=== PATIENT | female | born 1965 | race Caucasian/White ===

== ENCOUNTER → 2020-02-02 09:48 | Outpatient (CLI) | payer BC, SELFPAY ==
--- NOTE | 2020-02-02 09:51 | MM_ITS ---
PROCEDURE: MM DIG SCREENING MAMM BI W/CAD Referring Doctor: Valentín Tapia Patient Age:54Y CLINICAL INDICATION: SCREENING 54-year-old. No hormones. No new complaints. Family history-unremarkable . History of cysts left breast COMPARISON: MG DMSB DIG MAMM-SCREEN MARICARMEN from 04/28/2013 MG DMDXUAVL DIG MAMM-DX UNI ADD VIEWS-LT from 05/17/2013 US BB US BREAST-MARICARMEN from 05/17/2013 MG DMSB DIG MAMM-SCREEN MARICARMEN from 04/08/2016 TECHNIQUE: Standard CC and MLO images were obtained. R2 CAD reviewed. Bilateral digital breast tomosynthesis included. Additional axillary CC views both breast included FINDINGS: When compared to 2013 mammogram studies there is further involution of the fibroglandular elements. Mild to moderate residual fibroglandular elements bilaterally. But no suspicious calcifications LEFT BREAST: We again see the area asymmetric density at the inferior left breast. A similar appearance since 2016 prior mammogram period was seen to be a site of multiple cysts on older 2013 mammogram studies/and ultrasound However today's tomosynthesis views do show slight irregular margin of this region centrally. Of this may reflect some scarring associated with some residual cysts. A because of this slight irregular contour I believe a follow-up ultrasound along with cc MLO spot views would be helpful to further evaluate and support relative stability. The patient's previous ultrasound was in back in 2013 Right breast No new areas of concern on right follow-up 1 year on the right would be adequate IMPRESSION: LEFT BREAST:. Again see asymmetric area density at the inferior breast. Appears similar to 2016-likely reflects residual clustered grouping small residual cysts seen which was much more pronounced 2013. However on today's tomosynthesis views there is some irregular margins at this region. Although likely due to some associated fibrous changes and scarring I would suggest spot views and ultrasound to further evaluate. Right breast but no new areas of concern follow-up right mammogram 1 year BI-RAD Category: 0 Need Additional Imaging Evaluation FOLLOW-UP: IMM Immediate Follow-up Recommended Recommend spot views and ultrasound left breast (A letter has been sent to the patient regarding results of the study.) Dictated by: Cristiano Alicia MD 02/09/2020 10:58 Cristiano Alicia MD in [place] 02/09/2020 10:58
== END ==
PROVIDERS: PCP Family Medicine; Visit Provider Family Medicine
DX: Z12.31 Encounter for screening mammogram for malignant neoplasm of breast (principal)
CPT/HCPCS: 77063; 77067

== ENCOUNTER → 2020-03-26 13:41 | Outpatient (CLI) | payer OTHER, SELFPAY ==
--- NOTE | 2020-03-26 13:46 | US_ITS ---
PROCEDURE: US BREAST LT COMPLETE CLINICAL INDICATION: ABN MAMM OF LT BREAST COMPARISON: US BB US BREAST-MARICARMEN from 05/17/2013 FINDINGS: There is a somewhat oval lesion with multiple hypoechoic cystic structures suggesting cluster of microcysts at the 5 o'clock position somewhat near the nipple. The cystic lesions actually appears smaller than on the previous ultrasound exam 05/17/2013. There is no abnormal acoustic shadowing. There are couple of additional benign-appearing cystic lesions at the 4 o'clock and 6 o'clock positions. There is no suspicious solid lesion. There are normal appearing nodes in the axilla. IMPRESSION: Basically benign-appearing cluster of microcysts at the location in question on the recent mammogram which actually appears somewhat smaller than on the previous ultrasound and feel no additional ultrasound evaluation is indicated at this time. Dictated by: Dr. Adam Oquendo MD 03/27/2020 08:02 Dr. Adam Oquendo MD in [place] 03/27/2020 08:02
--- NOTE | 2020-03-26 13:46 | MM_ITS ---
PROCEDURE: MM DIG MAMM DX UNILAT LT CAD Digital Breast Tomosynthesis Included CLINICAL INDICATION: ABN MAMM OF LT BREAST COMPARISON: MG DMDXUAVL DIG MAMM-DX UNI ADD VIEWS-LT from 05/17/2013 MG DMSB DIG MAMM-SCREEN MARICARMEN from 04/08/2016 MG MM DIG SCREENING MAMM BI W/CAD from 02/02/2020 US US BREAST LT COMPLETE from 03/26/2020 TECHNIQUE: Standard CC and MLO images and 3D Tomosynthesis was obtained. R2 CAD reviewed. FINDINGS: Spot compression views of the lobulated asymmetric density lower outer quadrant showed the lesion to have somewhat more well-defined borders with overall better visualization of the lesion due to progressive fatty involution of the surrounding breast parenchyma when compared to previous studies. The mammogram appearance suggest a cluster of small cysts. Ultrasound exam performed the same date confirm a cluster of small benign-appearing cysts. There is no definite evidence of architectural distortion. IMPRESSION: Probable cluster of cysts with no definite suspicious characteristics however oblique would be helpful to have a six-month follow-up left mammogram there by having 2 successive studies with tomosynthesis evaluation. Six-month follow-up ultrasound should be considered as well. BI-RAD Category: 3 Probably Benign Finding Short Term Follow-up FOLLOW-UP: 6M 6Month Follow-up (A letter has been sent to the patient regarding results of the study.) Dictated by: Dr. Adam Oquendo MD 03/27/2020 07:57 Dr. Adam Oquendo MD in [place] 03/27/2020 07:57
== END ==
PROVIDERS: PCP Family Medicine; Visit Provider Family Medicine
DX: R92.8 Other abnormal and inconclusive findings on diagnostic imaging of breast (principal)
CPT/HCPCS: 76641; 77061; 77065; G0279

== ENCOUNTER → 2020-09-26 12:54 | Outpatient (CLI) | payer OTHER, SELFPAY ==
--- NOTE | 2020-09-26 13:09 | MM_ITS ---
PROCEDURE: MM DIG MAMM DX UNILAT LT CAD Digital Breast Tomosynthesis Included CLINICAL INDICATION: ABN MAMM Follow-up abnormal mammogram/breast nodule COMPARISON: MG DMDXUAVL DIG MAMM-DX UNI ADD VIEWS-LT from 05/17/2013 MG DMSB DIG MAMM-SCREEN MARICARMEN from 04/08/2016 MG MM DIG SCREENING MAMM BI W/CAD from 02/02/2020 US US BREAST LT COMPLETE from 03/26/2020 MG MM DIG MAMM DX UNILAT LT CAD from 03/26/2020 US US BREAST LT COMPLETE from 09/26/2020 TECHNIQUE: Standard CC and MLO images and 3D Tomosynthesis was obtained. R2 CAD reviewed. Left breast ultrasound. Spot-compression views FINDINGS: Average fibroglandular tissue. There is a macro lobulated 3 x 1.2 cm nodular density in the lower aspect of the left breast. This appears more well-circumscribed and slightly larger than when compared to the previous exam. With small additional nodules anteriorly as well as other smaller benign-appearing nodules. These have a benign appearance. Left breast ultrasound: There are numerous small cysts noted at the 5 o'clock region of the left breast the largest of which measures 12 mm. The whole cluster of cyst measures approximately 3.9 cm. No suspicious nodules are evident. IMPRESSION: Benign findings. Recommend resume screening mammogram and repeat ultrasound in March 2021 BI-RAD Category: 2 Benign Finding(s) FOLLOW-UP: 6Month Follow-up (A letter has been sent to the patient regarding results of the study.) Dictated by: Leodan Ordonez MD 09/29/2020 17:38 Leodan Ordonez MD in [place] 09/29/2020 17:38
== END ==
PROVIDERS: PCP Family Medicine; Visit Provider Family Medicine
DX: R92.8 Other abnormal and inconclusive findings on diagnostic imaging of breast (principal)
CPT/HCPCS: 76641; 77061; 77065; G0279

== ENCOUNTER → 2021-04-01 13:46 | Outpatient (CLI) | payer OTHER, SELFPAY ==
--- NOTE | 2021-04-01 13:49 | US_ITS ---
PROCEDURE INFORMATION: Exam: US Left Breast, Complete MG Bilateral Screening 3D Mammography Exam date and time: 04/01/2021 1:49 PM Age: 55 years old Clinical indication: Screening. Follow-up for left breast cystic change TECHNIQUE: Imaging protocol: Complete ultrasound of all four quadrants of the Left breast and the retroareolar regions, including ultrasound of the axilla when performed. Bilateral screening tomosynthesis and 2D mammography including computer-aided detection (CAD) when performed. COMPARISON: 1. MG MM DIG SCREENING MAMM BI W/CAD 02/02/2020 10:05 AM 2. US BREAST LT COMPLETE 09/26/2020 1:47 PM FINDINGS: MAMMOGRAPHY: Breast composition: The breast tissue is composed of scattered areas of fibroglandular density. Mass: Stable lobulated 4.0 cm mass in the left lower outer quadrant corresponding to underlying cystic change sonographically Architectural distortion: None. Calcifications: None. Asymmetric density: None. Skin thickening: None. Axillary adenopathy: None. ULTRASOUND: Right solid masses: None. Right cystic masses: None. Right architectural distortion: None. Right acoustical shadowing: None. Right skin thickening: None. Right axillary adenopathy: None. Left solid masses: None. Left cystic masses: Cluster of cysts with a combined dimension of 3.7 cm is noted in the left 5 o'clock axis corresponding to the mass on mammography.. Left architectural distortion: None. Left acoustical shadowing: None. Left skin thickening: None. Left axillary adenopathy: None. IMPRESSION: No mammographic or sonographic evidence of malignancy. Annual screening is recommended unless otherwise clinically indicated. ASSESSMENT: Screening mammogram BIRADS: BI-RADS Category 2: Benign Overall BIRADS: BI-RADS Category 2: Benign
== END ==
PROVIDERS: PCP Family Medicine; Visit Provider Family Medicine
DX: Z12.31 Encounter for screening mammogram for malignant neoplasm of breast (principal); R92.8 Other abnormal and inconclusive findings on diagnostic imaging of breast
CPT/HCPCS: 76641; 77063; 77067

== ENCOUNTER → 2021-09-26 10:48 | Outpatient (CLI) | payer OTHER, SELFPAY ==
--- NOTE | 2021-09-26 10:56 | XR_ITS ---
FINAL REPORT CLINICAL HISTORY: LEFT SIDED NECK PAIN THAT SHOOTS DOWN LEFT ARM FINDINGS: CERVICAL SPINE 5 views were obtained. There is no acute fracture. There is straightening of the normal cervical lordosis which can be seen with patient positioning or muscle spasm. There are mild and moderate degenerative changes with osteophytes. There is mild right C4-5 and C5-6 neural foraminal narrowing with mild left C4-5, C5-6, and C6-7 neural foraminal narrowing. There is no soft tissue abnormality. IMPRESSION: Degenerative change with no acute bony abnormality. Straightening normal cervical lordosis which can be seen with patient positioning or muscle spasm. Reviewed, Interpreted and Dictated by Jimmy Miles III, MD Transcribed by Luly Ortiz Authenticated by Jimmy Miles III, MD on 09/26/2021 12:24:17 PM [facility]
== END ==
PROVIDERS: PCP Family Medicine; Visit Provider Family Medicine
DX: M53.82 Other specified dorsopathies, cervical region (principal)
CPT/HCPCS: 72050

== ENCOUNTER → 2021-11-21 15:18 | Outpatient (CLI) | payer OTHER, SELFPAY | PROVIDERS: PCP Physician Assistant; Visit Provider Physician Assistant | DX: U07.1 COVID-19 (principal) | CPT/HCPCS: C9803; U0003; U0005 ==

== ENCOUNTER 2024-11-25 10:50 | Outpatient (CLI) | payer OTHER, SELFPAY ==
--- OUTSIDE RECORDS SUMMARY | 2023-07-20 11:15 | XMS_ITS ---
[facility] Address [address] [place] [id number] Care Team Providers Care Weathercaster Name Role Phone Dimitri Tapia Primary Care Provider DIMITRI TAPIA Unavailable Unavailable Leena Bridges Unavailable [phone] Allergies Allergen (clinical drug ingredient) Drug/Non Drug Allergy documented on EMR Reaction Allergy Type Onset Date Status lisinopril Lisinopril Cough Drug Allergy Activ e naproxen Naproxen Unknown Drug Allergy 03/29/2019 Active Results Component Value Reference Range Notes Jean Marie Reviewed date:08/17/2023 09:52:30 AM Interpretation:Positive Performing Lab: Notes/Report: Positive REASON FOR VISIT Refills Medications Medication SIG (Take, Route, Frequency, Duration) Notes Start Date End Date Status Losartan Potassium-HCTZ 50-12.5 MG 1 tab(s) orally once a day for 90 day(s) Active CareTouch CPAP & BIPAP Hose NASAL 11/21 PRESSURE WITH HEATED AND HUMIDIFIED AIR DIRECTED 10/23/2016 Active CPAP SUPPLIES DIRECTED 07/25/2020 Act max Vitamin D3 10 MCG (400 UNIT) 1 tab(s) orally once a day 01/05/2017 A ctive Problems Problem Type SNOMED Code ICD Code Onset Dates Problem Status W/U Status Risk Notes Problem HTN (hypertensio n) (I10) Active confirmed Vital Signs Blood pressure systolic 110 mm Hg 07/20/19 24 Blood pressure diastolic 70 mm Hg 024 Heart Rate 78 /min 07/20/2023 Height 63.50 in 07/20/2023 Weight 206 lbs 07/20/2023 BMI 35.91 kg/m2 07/20/2023 Encounters Encounter Location Date Provider Diagnosis [facility] [address] [place] [id number] 07/20/2023 Leena Bridges HTN (hypertension) I10 ; Breast cancer screening Z12.39 and Colon cancer screening Z12.11 Assessments Encounter Date Diagnosis (ICD Code) Assessment Notes Treatment Notes Treatment Clinical Notes Section Notes 07/20/2023 HTN (hypertension) (ICD-10 - I10) Continue losartan potassium-HCTZ and check blood pressure at home. Continue low sodium cardiac diet at home. Cologaurd and mammogram to be scheduled. 07/20/2023 Breast cancer screening (ICD-10 - Z12.39) 07/20/2023 Colon cancer screening (ICD-10 - Z12.11) Plan Of Treatment Medication Medication Name Sig Start Date Stop Date Notes Losartan Potassium-HCTZ 50-1 2.5 MG 1 tab(s) orally once a day for 90 day(s) Treatment Notes Assessment Notes HTN (hypertension) Continue losartan po tassium-HCTZ and check blood pressure at home. Continue low sodium cardiac diet at home. Cologaurd and mammogram to be scheduled. Pending Test Test Name Order Date Mammogram 07/20/2023 Next Appt Details Follow Up: 6 Months,and prn, Reason: Progress Notes * GRUPO HURST SDOB:[birth year] (59 yo F)Acc No.[id number]:07/20/2023 Progress Notes Patient: GRUPO MILLER Provider: KAYLI Huang :1965 A ge:58 Y S ex:Female Date:07/20/2023 [address] [place], [id number] Pcp:Dimitri Tapia Subjective: * Chief Complaints: * 1 . Refills. * HPI: C ardiology: 58 year old female presents with c/o Blood Pressure Elevated?Pt is here for a refill on lostartan, doing well on medications. Denies : Chest Pain. D enies : Palpitations. D enies : Leg Edema. had labs completed for insurace and will send copy of results. * ROS: A LLERGY: no C ough. n o R unny nose. C ARDIOLOGY: no C hest pain. n o L eg edema. n o S hortness of breath. G ASTROENTEROLOGY: no V omiting. n o D iarrhea. U ROLOGY: no D ifficulty urinating. n o B lood in urine. * Medical History: H ypertension, Hyperlipidemia, Sleep Apnea, 2017, Iron Deficiency Anemia, Microscopic Hematuria. * Surgical History: C -Section x 3 , Splenectomy , Cholecystectomy . * Family History: F ather: , at 50 heart attack.. M other: alive 60 yrs. 1 brother(s) . 1 son(s) , 2 daughter(s) . . no family history of female or colon cancer. * Social History: C URRENT TOBACCO USE S moking Status: Patient does NOT smoke. C affeine: yes, frequency:daily. Home smoke detector use: yes. Marital Status: . Past smoking status: no, Smoking status: Does not smoke. Alcohol: no. * Medications: T aking CareTouch CPAP & BIPAP Hose MACHINE AND SUPPLIES NASAL 6/16 PRESSURE WITH HEATED AND HUMIDIFIED AIR DIRECTED , Taking CPAP SUPPLIES DIRECTED , Taking Vitamin D3 10 MCG (400 UNIT) Tablet 1 tab(s) orally once a day , Taking Losartan Potassium-HCTZ 50-12.5 MG Tablet 1 tab(s) orally once a day , Medication List reviewed and reconciled with the patient * Allergies: L isinopril: Cough, Naproxen - Onset Date 03/29/2019. Objective: * Vitals: W t:206, Temp:98.7, BP:110/70, HR:78, Nurse:dm, Ht: 63.50, BMI:35.91. * Examination: G eneral Examination: General Appearance: NAD. Neck: no carotid bruits. Chest: normal shape and expansion. Heart: RSR, normal S1S2, no murmurs. Lungs: clear to auscultation, no wheezes or rales. Extremities: no leg edema. Assessment: * Assessment: 1. H TN (hypertension) - I10 (Primary) 2 . B reast cancer screening - Z12.39 3 . C olon cancer screening - Z12.11 Plan: * Treatment: 2. B reast cancer screening I maging: Mammogram 0 07/28 3.?Colon cancer screening?LAB: Jean Marie (Collection Date & Time - 08/17/2023)?Positive* YulianaLeslyeLeena 07/20/2023 3:59:04 PM > please send to her homeWhMillie cruz 07/20/2023 4:23:28 PM > order faxedMillie Canseco 08/17/2023 9:52:22 AM > See phone encounter * Follow Up: 6 Months,and prn * Billing Information: * Visit Code: 15388 Office Visit, Est Pt., Level 3. * Procedure Codes: * Electronic signature of Shraddha jonesmarlene Bridges APRN on 11/25/2024 at 10:53 AM EDT Sign off status: Pending * Provider: KAYLI Huang Date: 0 07/20/2023 Generated for Evelyn mejia/Gabbie/eTransmitting on: 0 11/25/2024 10:53 AM EDT History and Physical Notes * HPI (History of Present Illness) Category Sub-Category Detail Notes Category Not es Cardiology Chest Pain had labs comple marybel for insurace and will send copy of results Palpitations Leg Edema Blood Pressure Elevated Pt is here for a refill on lostartan, doing well on medications Examination Category Sub-Category Detail Notes Category Not es General Examination Heart: RSR, normal S1S2, no murmurs Lungs: clear to auscultatio n, no wheezes or rales Extremities: no leg edema General Appearance: NAD Neck: no carotid bruits Chest: normal shape and exp ansion
--- OUTSIDE RECORDS SUMMARY | 2024-02-15 06:30 | XMS_ITS ---
Author Organization [facility] Address [address] [place] [id number] Care Team Providers Care Appellate Court Judge Name Role Phone Dimitri Tapia Primary Care Provider DIMITRI TAPIA Unavailable Unavailable Allergies Allergen (clinical drug ingredient) Drug/Non Drug Allergy documented on EMR Reaction Allergy Type Onset Date Status lisinopril Lisinopril Cough Drug Allergy Activ e naproxen Naproxen Unknown Drug Allergy 03/29/2019 Active Results Component Value Reference Range Notes Urinalysis - Inhouse Reviewed date:02/15/2024 02:49:56 PM Interpretation: Performing Lab: Notes/Report: Color/Clarity yellow/clear Leuk neg Nitrite neg Urobili 3.2 Protein neg pH 7.0 Blood 1+ Sp. Gr. 1.020 Ketone neg Bili neg Gluc neg REASON FOR VISIT cdl physical Medications Medication SIG (Take, Route, Frequency, Duration) Notes Start Date End Date Status CareTouch CPAP & BIPAP Hose NASAL 11/21 PRESSURE WITH HEATED AND HUMIDIFIED AIR DIRECTED 10/23/2016 Active CPAP SUPPLIES DIRECTED 07/25/2020 Act max Vitamin D3 10 MCG (400 UNIT) 1 tab(s) orally once a day 01/05/2017 A ctive Losartan Potassium-HCTZ 50-12.5 MG 1 tab(s) orally once a day for 90 day(s) Active Vital Signs Blood pressure systolic 118 mm Hg 02/15/20 24 Blood pressure diastolic 72 mm Hg 024 Heart Rate 79 /min 02/15/2024 Height 63.50 in 02/15/2024 Weight 209 lbs 02/15/2024 BMI 36.44 kg/m2 02/15/2024 Encounters Encounter Location Date Provider Diagnosis [facility] [address] [place] [id number] 02/15/2024 Dimitri Tapia Encounter for Depart ment of Transportation (DOT) examination for [place] license Z02.4 Assessments Encounter Date Diagnosis (ICD Code) Assessment Notes Treatment Notes Treatment Clinical Notes Section Notes 02/15/2024 Encounter for Department of Transportation (DOT) examination for [place] license (ICD-10 - Z02.4) Plan Of Treatment Next Appt Details Follow Up: prn, Reason: Progress Notes * HURSTDORENE CRUZLY SDOB:[birth year] (59 yo F)Acc No.[id number]:02/15/2024 Physical Patient: GRUPO MILLER Provider: Kelly Tapia M.D. :1965 A ge:58 Y S ex:Female Date:02/15/2024 Address:[address] [place], [place] [address] [address], [place], [id number] Subjective: * Chief Complaints: * 1 . Cdl physical. * HPI: H PI: 58 year old female presents with c/o Patient is here today for?CDL physical. * ROS: D ERMATOLOGY: no R phan. n o H smiley. G ASTROENTEROLOGY: no N ausea. n o V omiting. U ROLOGY: no D ifficulty urinating. n o B lood in urine. * Medical History: H ypertension, Hyperlipidemia, Sleep Apnea, 2017, Iron Deficiency Anemia, Microscopic Hematuria. * Surgical History: C -Section x 3 , Splenectomy , Cholecystectomy . * Hospitalization/Major Diagno stic Procedure: D enies Past Hospitalization. * Family History: F ather: , at [...] Onset Date 03/29/2019. Objective: * Vitals: W t:209, Temp:98.1, BP:118/72, HR:79, Nurse:olesya, Ht: 63.50, Visual Acuity: Left eye:20/20, Right eye:20/25, Both eyes:20/20, Color:Pass, Comments:With glasses, BMI:36.44. * Examination: G eneral Examination: General Appearance: N AD. HEENT: u nremarkable. Oral cavity: n o lesions, mucosa moist and WNL, no erythema. Neck: s upple, no lymphadenopathy. Chest: n ormal shape and expansion. Heart: R SR. Lungs: c lear to auscultation. Abdomen: bowel sounds present, soft and nontender. Neurologic Exam: I ntact, gait normal. Skin: n ormal, no rash. Peripheral pulses: n ormal (2+) bilaterally. Extremities: n o leg edema. Assessment: * Assessment: 1. E ncounter for Department of Transportation (DOT) examination for [place] license - Z02.4 (Primary) Plan: * Treatment: Value Reference Range C olor/Clarity yellow/clear * L euk neg * N itrite neg * U robili 3.2 * P rotein neg * p H 7.0 * B lood 1+ * S p. Gr. 1.020 * K etone neg * B obey neg * G srikanth neg * JagdeepTrupti 02/15/2024 11:02:43 AM > , Provider reviewed results while patient in office. * Procedure Codes: 9 9173 VISUAL ACUITY SCREEN, 36782 Urinalysis, no micro * Follow Up: p rn * Billing Information: * Visit Code: 72044 Preventive Care Est Pt Age 40-64. * Procedure Codes: 51624 VISUAL ACUITY SCREEN. 29521 Urinalysis, no micro. * Electronic signature of Lita Tapia MD on 11/25/2024 at 10:53 AM EDT Sign off status: Pending * Provider: Kelly Tapia M.D. Date: 0 02/15/2024 Generated for Printi ng/Faxing/eTransmitting on: 0 11/25/2024 10:53 AM EDT History and Physical Notes * HPI (History of Present Illness) Category Sub-Category Detail Notes Category Not es HPI Patient is here today for CDL physical Examination Category Sub-Category Detail Notes Category Not es General Examination HEENT: unremarkable Heart: RSR Lungs: clear to auscultatio n Abdomen: bowel sounds present , soft and nontender Extremities: no leg edema General Appearance: NAD Skin: normal, no rash Neurologic Exam: Intact, gait normal Neck: supple, no lymphaden opathy Oral cavity: no lesions, mucosa m oist and WNL, no erythema Peripheral pulses: normal (2+) bilatera lly Chest: normal shape and exp ansion
--- OUTSIDE RECORDS SUMMARY | 2024-08-29 05:30 | XMS_ITS ---
Author Organization [facility]-Luis Manuel Address [address] [place] [id number] Care Team Providers Care Wind Development Director Name Role Phone Dimitri Busby Primary Care Provider DIMITRI BUSBY Unavailable Unavailable Leena Bridges Unavailable [phone] Allergies Allergen (clinical drug ingredient) Drug/Non Drug Allergy documented on EMR Reaction Allergy Type Onset Date Status lisinopril Lisinopril Cough Drug Allergy Activ e naproxen Naproxen Unknown Drug Allergy 03/29/2019 Active Results Component Value Reference Range Notes CBC Venipuncture (in house) Reviewed date:09/02/2024 01:38:10 PM Interpretation: Performing Lab: Notes/Report: wbc 8.5 3.5 - 10 lymph 32.3 15 - 50 mid 8.5 2 - 15 gran 59.2 35 - 80 rbc 4.79 3.5 - 5.5 hgb 15.0 11.5 - 16.5 hct 43.1 35 - 55 mcv 90.1 75 - 100 mch 31.4 25 - 35 mchc 34.8 31 - 38 platlet 393 100 - 400 Glycohemoglobin A1c (in hous e) Reviewed date:09/02/2024 01:37:46 PM Interpretation:5.5% Performing Lab: Notes/Report: 5.5% glycohemoglobin 5.5% 5 - 6.5 % P-Comprehensive Metabolic Pa shalom (CMP) Reviewed date:09/02/2024 01:38:55 PM Interpretation:BS 111 Performing Lab: Notes/Report: Test performed by [facility] [address] [place] [address] , [address], [place] [address] Randal Mcgee MD, Hand Bunch Maker CLIA: [id number] Sodium 141 135-145 mmol/L Potassium 4.7 3.5-5.3 mmol/L Chloride 103 97-108 mmol/L CO2 27 22-32 mmol/L Glucose 111 65-99 mg/dL BUN 16 8-23 mg/dL Creatinine 0.77 0.50-1.00 mg/dL Calcium 9.5 8.6-10.4 mg/dL eGFR by Creatinine 88 >59 mL/min/1.73m2 Protein 7.0 6.0-8.3 g/dL Albumin 4.0 3.5-5.3 g/dL Alkaline Phosphatase 93 35-121 IU/L ALT (SGPT) 17 <5-47 IU/L AST (SGOT) 16 <5-40 IU/L Bilirubin, Total 0.4 <0.2-1.2 mg/dL A/G Ratio 1.3 1.1-2.5 P-Iron Reviewed date:09/02/2024 01:39:23 PM Interpretation:normal at 89 Performing Lab: Notes/Report: Test performed by [facility] [address] [place] [address] , [place] [address] Randal Mcgee MD, Hand Bunch Maker CLIA: [id number] Iron 89 37-145 ug/dL P-Lipid Panel Reviewed date:09/02/2024 01:37:21 PM Interpretation:LDL 161;HDL 77;TG 75 Performing Lab: Notes/Report: Test performed by [facility] [address] [place] [address] , [place] [address] Randal Mcgee MD, Hand Bunch Maker CLIA: [id number] Cholesterol 253 <200 mg/dL Triglycerides 75 <150 mg/dL HDL Cholesterol 77 >39 mg/dL Cholesterol / HDL Ratio 3.29 0.00-4.44 Ratio Non-HDL Cholesterol 176 <130 mg/dL LDL Cholesterol (Calculation) 161 <130 mg/dL LDL Cholesterol Levels* Less than 100 mg/dL Optimal 100 to 129 mg/dL Near Optimal/ Above Optimal 130 to 159 mg/dL Borderline High 160 to 189 mg/dL High 190 mg/dL and above Very High * Categories as recommended by the 2004 ATPIII guidelines LDL/HDL Ratio 2.1 <3.3 Ratio LDL Cholesterol Patient History Test Date: 11/05/2022 LDL Results: 158 Units: mg/dL % Change: - Test Date: 08/29/2024 LDL Results: 161 Units: mg/dL % Change: +1% P-TSH Reviewed date:09/02/2024 01:38:33 PM Interpretation:2.02 Performing Lab: Notes/Report: Test performed by [facility] [address] [place] [address] , [place] [address] Randal Mcgee MD, Hand Bunch Maker CLIA: [id number] TSH 2.02 0.43-5.25 mU/L P-Vitamin D 25-Hydroxy Reviewed date:09/02/2024 01:39:56 PM Interpretation:29.2 Performing Lab: Notes/Report: Test performed by [facility] [address] [place] [address] , [place] [address] Randal Mcgee MD, Hand Bunch Maker CLIA: [id number] Vitamin D 25-Hydroxy 29.2 30.0-100.0 ng/mL Interpretation of Vitamin D 25 OH: < 20 ng/mL - Deficiency 20 - 29 ng/mL - Insufficiency 30 - 100 ng/mL - Sufficiency > 100 ng/mL - Super-therapeutic- toxicity may occur above this level. Clinical correlation required. REASON FOR VISIT Check Up and Refills Medications Medication SIG (Take, Route, Frequency, Duration) Notes Start Date End Date Status CareTouch CPAP & BIPAP Hose NASAL 11/21 PRESSURE WITH HEATED AND HUMIDIFIED AIR DIRECTED 10/23/2016 Active Vitamin D3 10 MCG (400 UNIT) 1 tab(s) orally once a day 01/05/2017 A ctive CPAP SUPPLIES DIRECTED 07/25/2020 Act max Losartan Potassium-HCTZ 50-12.5 MG 1 tab(s) orally once a day for 90 days Active Vital Signs Blood pressure systolic 120 mm Hg 08/30/19 25 Blood pressure diastolic 78 mm Hg 025 Heart Rate 67 /min 08/29/2024 Height 63.50 in 08/29/2024 Weight 216.8 lbs 08/29/2024 BMI 37.8 kg/m2 08/29/2024 Encounters [facility]counter [facility] Date [facility] [address] [id number] 08/29/2024 Leena Bridges Vitamin D deficiency E55.9 ; Essential hypertension I10 ; Pure hypercholesterolemia E78.00 ; History of anemia Z86.2 ; Non morbid obesity, unspecified obesity type E66.9 ; Iron deficiency E61.1 ; Breast cancer screening Z12.39 ; Hyperglycemia R73.9 ; Thyroid disorder screen Z13.29 and Colon cancer screening Z12.11 Assessments Encounter Date Diagnosis (ICD Code) Assessment Notes Treatment Notes Treatment Clinical Notes Section Notes 08/29/2024 Vitamin D deficiency (ICD-10 - E55.9) 08/29/2024 Essential hypertensi on (ICD-10 - I10) 08/29/2024 Pure hypercholesterolemia (ICD-10 - E78.00) 08/29/2024 History of anemia (ICD-10 - Z86.2) 08/29/2024 Non morbid obesity, unspecified obesity type (ICD-10 - E66.9) discussed weight loss 08/29/2024 Iron deficiency (ICD -10 - E61.1) 08/29/2024 Breast cancer screen ing (ICD-10 - Z12.39) 08/29/2024 Hyperglycemia (ICD-1 0 - R73.9) 08/29/2024 Thyroid disorder scr een (ICD-10 - Z13.29) 08/29/2024 Colon cancer screeni ng (ICD-10 - Z12.11) 08/29/2024 Other Plan Of Treatment Medication Medication Name Sig Start Date Stop Date Notes Losartan Potassium-HCTZ 50-1 2.5 MG 1 tab(s) orally once a day for 90 days Treatment Notes Assessment Notes Non morbid obesity, unspecified obesity type discussed weight loss Pending Test Test Name Order Date colonoscopy 08/29/2024 Mammogram 08/29/2024 Next Appt Details Follow Up: 6 Months,and prn, Reason: Progress Notes * GRUPO ALANIZ SDOB:[birth year] (59 yo F)Acc No.[id number]:08/29/2024 Progress Notes Patient: Aguilar LEMOSukhjinder GRUPO S Provider: KAYLI Huang :1965 A ge:59 Y S ex:Female Date:08/29/2024 Address:[address] [facility] [address], [place], [id number] Pcp:Dimitri Busby Subjective: * Chief Complaints: * 1 . Check Up and Refills. * HPI: H PI: 59 year old female presents with c/o Patient is here today for?Pt is here today for a check up with refills. Pt sts she is doing well and has no concerns at this time. * ROS: R ESPIRATORY: no S hortness of breath. n o C hest pain. n o?Chest congestion. n o C ough. C ARDIOLOGY: no C hest pain. n o P alpitations. n o L eg edema. n o S hortness of breath. D ERMATOLOGY: no R phan. n o H smiley. G ASTROENTEROLOGY: Positive for d id not have colonoscopy due to illness and weather; will reschedule today. n o N ausea. n o V omiting. n o D iarrhea.?no C onstipation. U ROLOGY: no D ifficulty urinating. n [...] Onset Date 03/29/2019. Objective: * Vitals: W t: 216.8, Temp: 98.2, BP: 120/78, HR: 67, Nurse: berry, Ht: 63.50, BMI:37.8. * Examination: G eneral Examination: General Appearance: NAD, appears healthy, alert, well nourished and hydrated. HEENT: sclera and conjunctiva clear, PERRLA, TM's normal, translucent. Oral cavity: mucosa moist and WNL, no erythema. Neck: supple, no lymphadenopathy, no carotid bruits, thyroid normal. Heart: RRR. Lungs: CTAB A&P. Neurologic Exam: alert and oriented. Extremities: no leg edema. Assessment: * Assessment: 1. V itamin D deficiency - E55.9 (Primary) 2 . E ssential hypertension - I10 3 . P ure hypercholesterolemia - E78.00 4 . H istory of anemia - Z86.2 5 . N on morbid obesity, unspecified obesity type - E66.9 & #160; 6 . I dileep deficiency - E61.1 7 . B reast cancer screening - Z12.39? 8. H yperglycemia - R73.9 9 . T hyroid disorder screen - Z13.29 1 0. C olon cancer screening - Z12.11 Plan: * Treatment: Value Reference Range V itamin D 25-Hydroxy 29.2 L 30.0-100.0 - ng/mL * Leena Bridges 09/02/2024 1:39:40 PM > spoke with pt and reported results-to continue with Vit D 2.?Essential hypertension? Refill Losartan Potassium-HCTZ Tablet, 50-12.5 MG, 1 tab(s), orally, once a day, 90 days, 90, Refills 1.?LAB: P-Comprehensive Metabolic Panel (CMP) (Collection Date & Time - 08/29/2024 08:55 AM)?BS 111* Value Reference Range A /G Ratio 1.3 1.1-2.5 - * A lbumin 4.0 3.5-5.3 - g/dL * A lkaline Phosphatase 93 35-121 - IU/L * A LT (SGPT) 17 <5-47 - IU/L * A ST (SGOT) 16 <5-40 - IU/L * B ilirubin, Total 0.4 <0.2-1.2 - mg/dL * B UN 16 8-23 - mg/dL * C alcium 9.5 8.6-10.4 - mg/dL * C hloride 103 97-108 - mmol/L * C O2 27 22-32 - mmol/L * C reatinine 0.77 0.50-1.00 - mg/dL * G lucose 111 H 65-99 - mg/dL * P otassium 4.7 3.5-5.3 - mmol/L * S odium 141 135-145 - mmol/L * P rotein 7.0 6.0-8.3 - g/dL * e GFR by Creatinine 88 >59 - mL/min/1.73m2 * Leena Bridges 09/02/2024 1:38:45 PM > spoke with pt and reported results 3.?Pure hypercholesterolemia?LAB: P-Lipid Panel (Collection Date & Time - 08/29/2024 08:55 AM)?LDL 161;HDL 77;TG 75* Value Reference Range C holesterol / HDL Ratio 3.29 0.00-4.44 - Ratio * C holesterol 253 H <200 - mg/dL * H DL Cholesterol 77 >39 - mg/dL * L DL Cholesterol (Calculation) 161 H <130 - mg/d L * L DL/HDL Ratio 2.1 <3.3 - Ratio * N on-HDL Cholesterol 176 H <130 - mg/dL * T riglycerides 75 <150 - mg/dL * Leena Bridges 09/02/2024 1:36:05 PM > I spoke with pt and reported results; she wishes to try diet and exercise changes; reviewed low fat/chol diet; would like to recheck in 6 months 4.?History of anemia?LAB: CBC Venipuncture (in house) (Collection Date & Time - 08/29/2024)* Value Reference Range w bc 8.5 3.5 - 10 * l ymph 32.3 15 - 50 * m id 8.5 2 - 15 * g ran 59.2 35 - 80 * r bc 4.79 3.5 - 5.5 * h gb 15.0 11.5 - 16.5 * h ct 43.1 35 - 55 * m cv 90.1 75 - 100 * m ch 31.4 25 - 35 * m chc 34.8 31 - 38 * p latlet 393 100 - 400 * Cheryl Parks 08/29/2024 11:2 9:48 AM >Leena Bridges 08/31/2024 4:20:39 PM > left message for return JeanetteLeena lyons 09/02/2024 1:38:01 PM > spoke with pt and reported results ?Imaging: colonoscopy* Leena Bridges 08/29/2024 9:53:49 AM > + shannan; colonoscopy with Citlali Maurer 08/29/2024 09:55:48 AM >faxed to Dr. Elvi Mcconnell 11/21/2024 01:21:56 PM EDT >please call [phone] to schedule 5.?Non morbid obesity, unspecified obesity type? Notes: discussed weight loss??6.?Iron deficiency?LAB: P-Iron (Collection Date & Time - 08/29/2024 08:55 AM)?normal at 89* Value Reference Range I dileep 89 37-145 - ug/dL * Leena Bridges 09/02/2024 1:39:11 PM > spoke with pt and reported results 7.?Breast cancer screening?Imaging: Mammogram* Leena Bridges 08/29/2024 9:53:14 AM > Citlali Rivera 08/29/2024 09:59:14 AM >faxed to [facility] Elvi Rojo 11/21/2024 01:21:19 PM EDT >Please call [phone] to contact pt 8.?Hyperglycemia?LAB: Glycohemoglobin A1c (in house) (Collection Date & Time - 08/29/2024)? 5.5%* Value Reference Range g lycohemoglobin 5.5% 5 - 6.5 % * Cheryl Parks 08/29/2024 11:2 6:28 AM >Leena Bridges 09/02/2024 1:37:35 PM > spoke with pt and reported results 9.?Thyroid disorder screen?LAB: P-TSH (Collection Date & Time - 08/29/2024 08:55 AM)?2.02* Value Reference Range T SH 2.02 0.43-5.25 - mU/L * Leena Bridges 09/02/2024 1:38:26 PM > spoke with pt and reported results 10.?Colon cancer screening?Imaging: colonoscopy* Leena Bridges 08/29/2024 9:53:49 AM > + coluguard; colonoscopy with Citlali Maurer 08/29/2024 09:55:48 AM >faxed to Elvi 11/21/2024 01:21:56 PM EDT >please call [phone] to schedule * Procedure Codes: 8 5025 CBC WITH AUTO DIFF, 62360 GLYCATED HEMOGLOBIN TEST, Modifiers: QW , 3044F HG A1C LEVEL LT 7.0%, 3074F SYST BP LT 130 MM HG, 3078F DIAST BP < 80 MM HG * Follow Up: 6 Months,and prn * Billing Information: * Visit Code: 92455 Office Visit, Est Pt., Level 4. * Procedure Codes: 82178 CBC WITH AUTO DIFF. 24937 GLYCATED HEMOGLOBIN TEST. Modifiers: QW 3044F HG A1C LEVEL LT 7.0%. 3074F SYST BP LT 130 MM HG. 3078F DIAST BP < 80 MM HG. * Electronic signature of Shraddha Bridges APRN on 11/25/2024 at 10:52 AM EDT Sign off status: Pending * Provider: KAYLI Huang Date: 0 08/29/2024 Generated for Evelyn mejia/Gabbie/eTransmitting on: 0 11/25/2024 10:52 AM EDT History and Physical Notes * HPI (History of Present Illness) Category Sub-Category Detail Notes Category Not es HPI Patient is here today for Pt is here today for a check up with refills. Pt sts she is doing well and has no concerns at this time Examination Category Sub-Category Detail Notes Category Not es General Examination HEENT: sclera and c onjunctiva clear, PERRLA, TM's normal, translucent Heart: RRR Lungs: CTAB A&P Extremities: no leg edema General Appearance: NAD, appears healthy , alert, well nourished and hydrated Neurologic Exam: alert and oriented Neck: supple, no lymphaden opathy, no carotid bruits, thyroid normal Oral cavity: mucosa moist and WNL , no erythema
--- NOTE | 2024-11-25 10:53 | MM_ITS ---
PROCEDURE INFORMATION: Exam: MG Bilateral Screening 3D Mammography Exam date and time: 11/25/2024 11:01 AM Age: 59 years old Clinical indication: Screening examination TECHNIQUE: Imaging protocol: Bilateral Screening tomosynthesis and 2D mammography including computer-aided detection (CAD) when performed. COMPARISON: 1. MG MM DIG SCREENING MAMM BI W/CAD 04/01/2021 2:08 PM 2. MG MM DIG MAMM DX UNILAT LT CAD 09/26/2020 1:11 PM FINDINGS: MAMMOGRAPHY: Breast composition: There are scattered areas of fibroglandular density. Mass: No new or suspicious masses . Interval decrease in size of underlying cystic change in the left lower quadrant. Architectural distortion: None. Calcifications: No suspicious calcifications. Asymmetric density: None. Skin thickening: None. Axillary adenopathy: None. IMPRESSION: No mammographic evidence of malignancy. Annual screening is recommended unless otherwise clinically indicated. ASSESSMENT: BI-RADS Category 1: Negative.
--- OUTSIDE RECORDS SUMMARY | 2024-11-25 10:53 | XMS_ITS | Patient Health Record ---
Author Organization [facility]-Luis Manuel Address [address] [place] [id number] Care Team Providers Care Assembling Inspector Name Role Phone Dimitri Tapia Primary Care Provider DIMITRI TAPIA Unavailable Unavailable Leena Bridges Unavailable [phone] Allergies Allergen (clinical drug ingredient) Drug/Non Drug [...] 1.020 Ketone neg Bili neg Gluc neg CBC Venipuncture (in house) Reviewed date:09/02/2024 01:38:10 [...] 111 Performing Lab: Notes/Report: Test performed by [facility] [address] [place] [address] , [address], [place] [address] Randal Mcgee MD, Inventory Control Analyst CLIA: [id number] Sodium 141 135-145 mmol/L Potassium 4.7 3.5-5.3 [...] 89 Performing Lab: Notes/Report: Test performed by [facility] [address] [place] [address] , [address], [place] [address] Randal Mcgee MD, Inventory Control Analyst CLIA: [id number] Iron 89 37-145 ug/dL P-Lipid Panel Reviewed date:09/02/2024 01:37:21 PM Interpretation:LDL 161;HDL 77;TG 75 Performing Lab: Notes/Report: Test performed by [facility] [address] [place] [address] Naun Jeffrey, [address], [place] [id number] Randal Mcgee MD, Inventory Control Analyst CLIA: [id number] Cholesterol 253 <200 mg/dL Triglycerides 75 <150 [...] Interpretation:2.02 Performing Lab: Notes/Report: Test performed by [email or web address] [address] [place] [address] , [place] [address] Randal Mcgee MD, Inventory Control Analyst BENNETT: [id number] TSH 2.02 0.43-5.25 mU/L P-Vitamin D 25-Hydroxy Reviewed date:09/02/2024 01:39:56 PM Interpretation:29.2 Performing Lab: Notes/Report: Test performed by [facility] [address] [place] [address] , [address], [place] [address] Randal Mcgee MD, Inventory Control Analyst CLIA: [id number] Vitamin D 25-Hydroxy 29.2 30.0-100.0 ng/mL Interpretation of Vitamin D 25 OH: < 20 ng/mL - Deficiency 20 - 29 ng/mL - Insufficiency 30 - 100 ng/mL - Sufficiency > 100 ng/mL - Super-therapeutic- toxicity may occur above this level. Clinical correlation required. Reason For Referral No Information Medications Medication SIG (Take, Route, Frequency, Duration) [...] once a day for 90 days Active Immunizations Vaccine Route Administration Date Status Comme nts pneumovax IM Intramuscular 05/22/2008 Administered Problems Problem Type SNOMED Code ICD Code Onset Dates Problem Status W/U Status Risk Notes Problem Mammogram (793.80) Active confirmed Problem 27497569 Essential (prima ry) hypertension (I10) Active confirmed Problem Hypertension (27582706) HTN (hypertension) (I10) Active confirmed Problem 11988041 Vitamin D defici ency (E55.9) Active confirmed Problem 61358958 Essential hypert ension (I10) Active confirmed Problem 959463961 History of anemi a (Z86.2) Active confirmed Problem 91329768 Vitamin D defici ency, unspecified (E55.9) Active confirmed Problem 84013402 Iron deficiency (E61.1) Active confirmed Problem 582017590 Abnormal mammogr am of left breast (R92.8) Active confirmed Problem 20547201 Obstructive slee p apnea syndrome (G47.33) Active confirmed Problem 002991199 Non morbid obesi ty, unspecified obesity type (E66.9) Active confirmed Problem 68987088 Hypersomnia (G47.10) Active confirmed Problem 567507643 Pure hypercholesterolemia (E78.00) Active confirmed Problem 195675302 Pure hypercholesterolemia, unspecified (E78.00) Active confirmed Problem 17133515 Granuloma, pyoge boris, 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 Vital Signs Heart Rate 67 /min 08/29/2024 Blood pressure diastolic 78 mm Hg 08/29/2024 Height 63.50 in 08/29/2024 Blood pressure systolic 120 mm Hg 08/29/2024 Weight 216.8 lbs 08/29/2024 BMI 37.8 kg/m2 08/29/2024 Encounters Encounter Location Date Provider Diagnosis [facility] [address] [place] [phone] 02/15/2024 Dimitri [place] Encounter for Depart ment of Transportation (DOT) examination for [place] license Z02.4 [facility] [address] [place] [id number] 08/29/2024 Leena Bridges Vitamin D deficiency E55.9 ; Essential hypertension I10 ; Pure hypercholesterolemia E78.00 ; History of anemia Z86.2 ; Non morbid obesity, unspecified obesity type E66.9 ; Iron deficiency E61.1 ; Breast cancer screening Z12.39 ; Hyperglycemia R73.9 ; Thyroid disorder screen Z13.29 and Colon cancer screening Z12.11 [facility] [address] [place] [id number] 02/03/2024 Dimitri [place] HTN (hypertension) I 10 [facility] [address] [facility] [address] [place], [place] [phone] 08/09/2024 Dimitri [place] HTN (hypertension) I 10 [facility] [address] [place], [place] [phone] 08/25/2024 Dimitri [place] HTN (hypertension) I 10 Assessments Encounter Date Diagnosis (ICD Code) Assessment Notes Treatment Notes Treatment Clinical Notes Section Notes 02/03/2024 HTN (hypertension) (ICD-10 - I10) 02/15/2024 Encounter for Depart ment of Transportation (DOT) examination for [place] license (ICD-10 - Z02.4) 08/09/2024 HTN (hypertension) (ICD-10 - I10) 08/25/2024 HTN (hypertension) (ICD-10 - I10) 08/29/2024 Vitamin D deficiency (ICD-10 - E55.9) [...] - Z12.11) 08/29/2024 Other Plan Of Treatment Pending Test Test Name Order Date colonoscopy 08/29/2024 Mammogram 07/20/2023 Mammogram 08/29/2024 Insurance Providers Payer Name Payer Address Payer Phone Subscriber Number Group Number Insured Name Patient Relationship to Insured Coverage Start Date Coverage End Date YUSEF BELLAMY [address] [place], [place] [id number] [employer] Self - patient is the insured Medical (General) History Medical History History ICD Code Hypertension Hyperlipidemia Sleep Apnea, 2017 Iron Deficiency Anemia Microscopic Hematuria Surgical History Surgery Date(Month/Year) x 3 Splenectomy Cholecystectomy Hospitalization History Reason Date(Month/Year)
== END 2024-11-25 23:59 | disposition home or self-care (01) ==
LOC: RAD 10:51
PROVIDERS: PCP Nurse Practitioner Family; Visit Provider Nurse Practitioner Family
DX: Z12.31 Encounter for screening mammogram for malignant neoplasm of breast (principal); R92.323 Mammographic fibroglandular density, bilateral breasts; N60.02 Solitary cyst of left breast
CPT/HCPCS: 77063; 77067

== ENCOUNTER 2025-02-13 10:44 | Day surgery (SDC) | payer OTHER, SELFPAY ==
--- NOTE | 2025-02-09 13:02 | P.HP_ITS ---
History of Present Illness *Admission Date: 02/13/25 *Reason for visit:: Positive Cologuard *History of present illness: Mrs. Alaniz is a 59-year-old female who is here for screening colonoscopy secondary to positive Cologuard test (from 08/29/2024). The examination is deemed medically necessary for screening colonoscopy. The patient has been seen, interviewed and examined prior to the procedure by both myself and the anesthesia provider. [facility] Disclaimer: The information contained in this section may have been updated after the patient was seen, as this information can be updated by other users. Medical History (Updated 02/13/25 @ 11:02 by Yvette Huntley RN) Sleep apnea treated with continuous positive airway pressure (CPAP) Hypertension delivery delivered Cholecystectomy planned Surgical History History of splenectomy Family History Father Family history of myocardial infarction Social History Smoking Status: Never smoker alcohol intake: never current occupational status: employed Travel in the last 8 weeks?: None Have you lived/traveled outside US in past 30 days?: No Contact w/someone who lives/traveled outside US past 30 days?: No Exposure to someone with infectious disease in past 14 days?: No Do you have a fever (greater than 100.4 F or 38 C)?: No Have you tested positive for COVID-19?: No Exposed to someone with COVID-19 in past 14 days?: No Do you have a sore throat?: No Do you have a cough?: No Do you have any weakness?: No Do you have any diarrhea?: No Are you experiencing any unusual bleeding?: No Do you have any muscle aches/pain?: No Do you have any abdominal pain?: No Are you experiencing loss of taste or smell?: No Review of Systems Review of Systems Review of systems (narrative): Negative *Cardiovascular Comments: Negative *Gastrointestinal Comments: Negative *Genitourinary Comments: Negative *Musculoskeletal Comments: Negative *Neurologic Comments: Negative Meds Home Medications and Allergies Home Medications ?Medication ?Instructions ?Recorded ?Confirmed ?Type sodium,potassium,mag sulfates 17.5 See Rx Instructions PO .COMPLEX 08/25/25 Rx gram-3.13 gram-1.6 gram oral soln #354 mL (Suprep Bowel Prep Kit) cholecalciferol (vitamin D3) 10 10 mcg PO DAILY 02/13/25 History mcg (400 unit) capsule (Vitamin D3) losartan 50 mg-hydrochlorothiazide 1 tab PO DAILY 09/3002/13/25 History 12.5 mg tablet (Hyzaar) New Prescriptions to Start Prescriptions: Allergies Allergy/AdvReac Type Severity Reaction Status Date / Time acetaminophen (From Lortab) AdvReac Other Verified 02/13/25 11:04 hydrocodone (From Lortab) AdvReac Other Verified 02/13/25 11:04 Exam *Routine HEENT Exam Head: Present normocephalic Eye: Present EOMI and PERRL ENT: Present mucous membranes moist *Routine Neck Exam Neck: Present supple *Routine Respiratory Exam Respiratory: Present CTA bilaterally *Routine Cardiovascular Exam Cardiovascular: Present RRR *Routine Abdominal Exam Abdominal: Present soft and normoactive bowel sounds; Absent tenderness *Routine Rectal Exam Rectal:: deferred *Routine Genitalia Exam Genitalia:: deferred *Routine Extremities Exam Extremities: Absent cyanosis, clubbing or edema *Routine Skin Exam Skin: Present warm; Absent rash *Routine Neurological Exam Neurological: Present alert and oriented X3 Assessment and Plan *Assessment and plan (1) Positive colorectal cancer screening using Cologuard test: Status: Acute Category: Medical Code(s): R19.5 - Other fecal abnormalities Plan A/P: 1. Positive Cologuard is the preprocedural diagnosis. The patient will be anesthetized/sedated using MAC sedation. The patient has been seen and examined. Cardiac and lung assessment prior to the examination is stable. Proceed with planned screening colonoscopy.
[2025-02-13 10:59] VITALS: BMI 38.4
[2025-02-13 11:07] VITALS: BP 129/76; PULSE 66; RESP 18; TEMP 36.7; O2SAT 96
[2025-02-13] MEDS: LACTATED RINGERS 1000ML 1,000 ML 50 ML IV (11:15)
--- NOTE | 2025-02-13 12:30 | EXP.ANES.CKL ---
[facility] Disclaimer: The information contained in this section may have been updated after the patient was seen, as this information can be updated by other users. Medical History Sleep apnea treated with continuous positive airway pressure (CPAP) Hypertension delivery delivered Cholecystectomy planned Surgical History History of splenectomy Family History Father Family history of myocardial infarction Social History Smoking Status: Never smoker alcohol intake: never substance use type: unknown current occupational status: employed Travel in the last 8 weeks?: None [facility] Anesthesia Checklist Patient Identification Patient Identification: Arm Band and Verbal (Name & ) Structural Data Admitted From: Home Planned Operative Procedure/s: colonscopy Consent for Planned Operative Procedure(s) Verified: Yes Verified Documents: Surgical Consent and History and Physical NPO Status Verified Time NPO: 00:00 Additional verifications Patient : No Anesthesia Reactions: No Airway Assessment Mallampati Score:: Class II Dentition: Good Dentition Neurological Assessment Level of Consciousness: Awake, Alert and Appropriate Hx Seizures: No Numbness or tingling in extremities: No Anesthesia Plan Anesthesia Risk discussed: Yes Anesthesia Plan: Verified ASA Class: II Anesthesia Type: MAC
--- NOTE | 2025-02-13 12:31 | HMH.PROCNOTE ---
[facility] Procedure Note Date: 02/13/25 Time: 12:54 Procedure Note:: Colonoscopy Procedure Report: Colonoscopy with cold snare polypectomy Endoscopist: Speedy Bolton II, MD Referring physician: Valentín Tapia MD Date of Procedure: February 13, 2025 Equipment: Olympus [id number] adult colonoscope Sedation: MAC sedation Indication: Mrs. Alaniz is a 59-year-old female who is here for screening colonoscopy secondary to positive Cologuard test (from 08/29/2024). The patient reports no abdominal pain, weight loss, change in her bowel habits or rectal bleeding. She reports no family history of colon cancer. This is her first colonoscopy. Procedure: Prior to the procedure, a history and physical exam was performed, and patient's medications and allergies were reviewed. The risks, benefits and alternatives of the sedation and procedure were discussed with the patient. All questions were answered and informed consent was obtained. The patient was brought to the procedure room. Patient identification and proposed procedure were verified by the physician and the nurse. The patient was placed in a left lateral decubitus position and the scope was passed under direct vision. Throughout the procedure, the patient's blood pressure, pulse, and oxygen saturations were monitored continuously. The colonoscopy was accomplished without difficulty. The patient tolerated the procedure well. Findings: On digital rectal examination there was normal rectal tone. There were no external hemorrhoids. The colonoscope was introduced through the anal canal to the rectum and advanced to the cecum. The ileocecal valve and appendiceal orifice were identified. The scope was advanced a short distance into the ileum which appeared grossly normal. The scope was then withdrawn into the colon. The cecum, ascending and transverse colon and mucosa were grossly normal. There were scattered diverticuli throughout the descending and sigmoid colon (LEFT colon). There were 2 sessile polyps within the rectum (7 and 9 mm sizes) which were both removed via cold snare polypectomy. Upon retroflexion within the rectum there were grade 1-2 internal hemorrhoids. The preparation was excellent throughout with [place] Preparation Score of 9. The cecal time was 12 minutes. Impression: 1. Rectal polyps x 2 (7 and 9 mm) 2. Extensive left-sided diverticulosis 3. Grade 1-2 internal hemorrhoids Plan: I will follow-up the polyp histology and recommend repeat screening/surveillance colonoscopy again in 5 years. I would encourage psyllium bulking fiber supplementation on a maintenance basis.
[2025-02-13 12:55] VITALS: BP 98/68; PULSE 87; RESP 18; TEMP 36.1; O2SAT 100
[2025-02-13 13:05] VITALS: BP 110/65; PULSE 82; RESP 18; TEMP 36.1; O2SAT 100
[2025-02-13 13:15] VITALS: BP 120/74; PULSE 73; RESP 18; TEMP 36.1; O2SAT 100
[2025-02-13 13:25] VITALS: BP 126/72; PULSE 74; RESP 18; TEMP 36.1; O2SAT 100
== END 2025-02-13 13:25 | disposition home or self-care (01) ==
PROVIDERS: PCP Family Medicine; Visit Provider Internal Medicine Gastroenterology
PROC: 0DJD8ZZ Inspection of Lower Intestinal Tract, Via Natural or Artificial Opening Endoscopic (ICD-10-PCS; CPT 45378; principal; 2025-02-13 12:30)
DX: Z12.11 Encounter for screening for malignant neoplasm of colon (principal); D12.8 Benign neoplasm of rectum; K57.30 Diverticulosis of large intestine without perforation or abscess without bleeding; K64.1 Second degree hemorrhoids; K64.0 First degree hemorrhoids; G47.30 Sleep apnea, unspecified; I10 Essential (primary) hypertension; Z90.81 Acquired absence of spleen; Z79.899 Other long term (current) drug therapy; Z88.6 Allergy status to analgesic agent; Z88.5 Allergy status to narcotic agent
CPT/HCPCS: 45385; J2003; J2704; J7120